=== PATIENT | female | born 1950 | race African-American/Black ===

== ENCOUNTER 2016-07-18 05:10 | Inpatient (IN) | payer MEDICARE, OTHER ==
[2016-07-05 11:35] LABS: BASOPHILS 0.4 %; BASOPHILS ABSOLUTE 0.02 10/3/uL (0.0-0.16); EOSINOPHILS 3.6 %; HEMATOCRIT 34.4 % (36.0-48.0); HEMOGLOBIN 11.1 g/dL (12.0-16.0); IMMATURE GRANULOCYTES 0.2 %; IMMATURE GRANULOCYTES ABSOLUTE 0.01 10/3/uL (0.0-0.11); LYMPHOCYTES 35.9 %; LYMPHOCYTES ABSOLUTE 1.98 10/3/uL (0.67-4.30); MANUAL DIFF NO %; MEAN CORPUS HGB CONC 32.3 g/dL (32.0-36.0); MEAN CORPUSCULAR HEMOGLOB 28.3 pg (26.0-34.0); MEAN CORPUSCULAR VOLUME 87.8 fL (80-100); MEAN PLATELET VOLUME 8.9 fL (9.2-13.0); MONOCYTES 7.1 %; MONOCYTES ABSOLUTE 0.39 10/3/uL (0.21-1.20); NEUTROPHILS 52.8 %; NEUTROPHILS ABSOLUTE 2.92 10/3/uL (2.02-8.40); PLATELET COUNT 256 10/3/uL (150-400); RBC DISTRIBUTION WIDTH 13.3 % (12.0-16.0); RED CELL COUNT 3.92 10/6/uL (4.0-5.6); WHITE BLOOD CELLS 5.5 10/3/uL (4.5-10.5)
[2016-07-05 11:38] LABS: PROTIME (NOT ORD) 13.5 SEC (12.0-14.5)
[2016-07-05 11:44] LABS: A/G RATIO 0.7 (0.7-1.9); ALBUMIN 3.3 G/DL (3.5-5.0); ALKALINE PHOSPHATASE 92 U/L (45-117); BUN (BLOOD UREA NITROGEN) 21 MG/DL (6-23); CALCIUM, SERUM 9.5 MG/DL (8.5-10.4); CHLORIDE, SERUM 108 MMOL/L (96-112); CO2 (CARBON DIOXIDE) 29 MMOL/L (24-34); CREATININE 1.18 MG/DL (0.55-1.02); GFR AFRICAN AMERICAN 56 ML/MIN (>=60); GFR NON AFRICAN AMERICAN 48 ML/MIN (>=60); GLOBULIN 4.8 G/DL (2.5-4.1); GLUCOSE, SERUM 76 MG/DL (60-99); POTASSIUM, SERUM 3.5 MMOL/L (3.5-5.3); SGOT(AST) 20 U/L (5-40); SGPT(ALT) 14 U/L (5-65); SODIUM, SERUM 143 MMOL/L (135-148); TOTAL BILIRUBIN 0.4 MG/DL (0-1.2); TOTAL PROTEIN 8.1 G/DL (6.0-8.5)
[2016-07-05 14:18] LABS: ASCORBIC ACID (UR NOT ORDER) NEG (NEG); BILIRUBIN, URINE NEGATIVE (NEG); KETONE, URINE NEGATIVE (NEG); LEUKOCYTE ESTERASE(NOT OR LARGE (NEG); WBC (NOT ORDERED) (RFLEX) 6 (0-5)
--- NOTE | ~2016-07-18 | OP ---
Record Of Operation [facility] [address] [place]. [address] NAME: BRETT FAJARDO : 50 STATUS : ADM IN PAT#: [id number] AGE: 66 ADM/REG DATE : 07/18/16 MR#: [id number] REPORT SERV DATE: 07/18/16 DICTATED BY: GARY KAUR DATE: 07/18/16 REPORT STATUS : Draft TRANSCRIBED BY: MODL DATE: 07/18/16 DATE OF PROCEDURE: 07/18/2016 PREOPERATIVE DIAGNOSIS: Severe bilateral knee degenerative joint disease. POSTOPERATIVE DIAGNOSIS: Severe bilateral knee degenerative joint disease. OPERATION: Bilateral posterior stabilized total knee replacement, cemented. SIDE: Right and left. SIZE: See chart. ANESTHESIA: See chart. ESTIMATED BLOOD LOSS: About 10 mL, each knee. TOURNIQUET TIME: Approximately 1 hour and 10 minutes. COMPLICATIONS: None. SPECIMENS: Articular surfaces. PROCEDURE: The patient was appropriately identified and marked. The operative side agreed with the consent form and it was checked by all members of the surgical team. The patient was taken to the operating room and anesthesia was induced per the anesthesiologist. The patient was carefully transferred to the operating table without incident. The patient received appropriate prophylactic antibiotics and a Palmer catheter was placed in the standard sterile technique. The patient was then carefully positioned, padded, prepped and draped in the normal sterile fashion. The operative leg had been appropriately identified and checked by all members of the operating team against the consent form and found to be the correct limb. The patient's lower extremity was then exsanguinated with an Amandeep wrap and a tourniquet was inflated to 350 mm/Hg. Sharp dissection was carried out through a straight midline longitudinal incision and electrocautery through the fat. Sharp quad splitting approach was carried out between about the medial 10 percent of the tendon and the lateral 90 percent of the tendon and down around the medial aspect of the patella and then 1 cm medial to the tibial tubercle. The patella was carefully everted and the posterior fat pad was excised and gentle MCL elevation was carried out off the proximal medial tibia subperiosteally. IM guide was placed in the distal femur after using the appropriate drill. The distal femoral cutting guide was held with 2 pins and the distal cut made. Meniscal fragments and the ACL and the PCL were excised with electrocautery, carefully staying anterior to the posterior fat pad. The proximal tibial alignment guide was set appropriately and the proximal tibial cut made. Spacer block verified full extension with excellent mediolateral balance. Sizing guide was used to place 2 drill holes in the distal femur and the four-in-one cutting block was then placed, impacted and checked Record Of Operation [facility] [address] [place]. [address] NAME: BRETT FAJARDO : 50 STATUS : ADM IN PAT#: [id number] AGE: 66 ADM/REG DATE : 07/18/16 MR#: [id number] REPORT SERV DATE: 07/18/16 DICTATED BY: GARY KAUR DATE: 07/18/16 REPORT STATUS : Draft TRANSCRIBED BY: DANICA DATE: 07/18/16 to be sure it would not notch with an stephanie wing and it was held with 2 pins. The anterior cut, posterior cut, anterior chamfer and posterior chamfer cuts were made. The pins were removed and the block was removed. A posterior release was carried out with a curved 3/4 inch osteotome staying right on the bone posteriorly. The box-cut guide was then placed, impacted and held with 2 pins and a reciprocating saw was used to cut out the box. With the trial components in place, there was excellent medial/lateral balance. The patella was then measured with a caliper, cut first with an oscillating saw and then reamed with a patella reamer. With the trial patella in place, there was excellent patellar tracking. Rotation was marked on the tibia and the tibia prepared with a drill and stamp chisel. All surfaces were then copiously irrigated with pulsatile lavage, carefully dried and then vacuum-mixed cement was pressurized with a cement gun in a doughy phase. The tibial component was placed, impacted and excess cement was removed. The cement was then pressurized in the femur and placed on the posterior runners of the femoral component, which was placed, impacted and excess cement removed and the knee was brought out into extension on a trial spacer. The cement was then pressurized in the patella. Patellar component was then placed, clamped and excess cement was removed. Once all cement was hardened, the knee was taken through range of motion. Further extruded cement was removed with a small osteotome. Then based on the trial inserts, we decided on the actual insert, which was placed in the standard fashion and held with a locking mechanism. The knee was then copiously irrigated and then closed in a layered fashion over a medium Hemovac drain superolaterally with interrupted #1 in the deep fascia, 2-0 subcutaneous and mike in the skin. The wounds were dressed sterilely and the tourniquet was deflated. The patient was then awakened and taken to the postanesthesia care unit without incident. All counts were correct at the end of the case. WTB/MODL Alissa Kaur M.D. / [id number] CC: Emmanuel Flores M.D.
--- NOTE | ~2016-07-18 | DS ---
Discharge Summary [facility] [address] [place]. [address] NAME: BRETT FAJARDO : 50 STATUS : DIS IN PAT#: [id number] AGE: 66 ADM/REG DATE : 07/18/16 MR#: [id number] REPORT SERV DATE: 07/30/16 DICTATED BY: GARY KAUR DATE: 07/30/16 REPORT STATUS : Draft TRANSCRIBED BY: DANICA DATE: 07/30/16 Data Collection from hospitalization DISCHARGE DIAGNOSES: 1. Severe bilateral knee degenerative joint disease. 2. Hypertension. CONSULTATIONS: None. PROCEDURES PERFORMED: Bilateral posterior stabilized total knee replacement, cemented, 07/18/2016. PATHOLOGY: Bone and soft tissue, right and left knee arthroplasty - degenerative changes, fatty bone marrow, papillary synovial hyperplasia. MEDICATIONS: [place] 7.5/325 one to two tablets every four hours as needed, Synthroid 125 mcg daily, Maxzide one tablet daily, and Coumadin one tablet every evening. CONDITION AT DISCHARGE: Stable. DISPOSITION: The patient was discharged home to be followed by home health care on a regular diet with activities as instructed. She would follow up with Rashaad Harp on 08/01/2016. She would follow up with on 09/02/2016. HOSPITAL COURSE: This is a 66-year-old female who has had bilateral knee pain. X-rays had shown severe bilateral knee degenerative joint disease. Treatment options were discussed and it was elected to proceed with surgical intervention. She was admitted to the hospital at this time for further evaluation and treatment. Upon admission, she was taken to the operating room where she underwent the above-mentioned procedure. She tolerated this well, and there were no complications. On postop day #1, she was transfused. KENZIE/SCDs were in place. Triamterene-hydrochlorothiazide were held. She did have some hypotension. Synthroid was continued. On postop day #2, she was up sitting in a bedside chair. She was in no acute distress. She said she felt much better. She was evaluated by Occupational and Physical Therapy. Over the next couple of days, she continued to progress. Her hypotension was improving. Discharge planning was performed. On 07/23/2016, she continued to do well. She was nervous about doing stairs. Discharge instructions were given. Due to her improved and stable condition, she was discharged home to be followed by home health care with the above-stated instructions. Information collected by: Jacinda Marshall I submit the above information as my discharge summary. SOL/DANICA Alissa Kaur M.D. Discharge Summary [address] [address] NAME: BRETT FAJARDO : 50 STATUS : DIS IN PAT#: [id number] AGE: 66 ADM/REG DATE : 07/18/16 MR#: [id number] REPORT SERV DATE: 07/30/16 DICTATED BY: GARY KAUR DATE: 07/30/16 REPORT STATUS : Draft TRANSCRIBED BY: DANICA DATE: 07/30/16 / [id number] CC: Emmanuel Flores M.D.
[~2016-07-18 05:10] MED LIST: AMB10 PO; DYAZIDE1 CAP PO; MAX25 PO; MOBIC15 MG PO; SYN125 PO; SYN88 PO; TAGAMET 200 MG200 MG PO; TOPAMAX50 MG PO
[2016-07-19 04:19] LABS: INTERNATIONAL NORMAL RATI 1.2 UNITS (-); PROTIME (NOT ORD) 15.3 SEC (12.0-14.5)
[2016-07-19 04:21] LABS: HEMATOCRIT 23.2 % (36.0-48.0); HEMOGLOBIN 7.2 g/dL (12.0-16.0)
[2016-07-19 04:30] LABS: BUN (BLOOD UREA NITROGEN) 19 MG/DL (6-23); CHLORIDE, SERUM 108 MMOL/L (96-112); CO2 (CARBON DIOXIDE) 30 MMOL/L (24-34); CREATININE 1.05 MG/DL (0.55-1.02); GFR AFRICAN AMERICAN 64 ML/MIN (>=60); GFR NON AFRICAN AMERICAN 55 ML/MIN (>=60); POTASSIUM, SERUM 4.1 MMOL/L (3.5-5.3); SODIUM, SERUM 142 MMOL/L (135-148)
[2016-07-19 04:32] LABS: CALCIUM, SERUM 8.2 MG/DL (8.5-10.4); GLUCOSE, SERUM 115 MG/DL (60-99)
[2016-07-20 04:49] LABS: HEMATOCRIT 26.7 % (36.0-48.0); HEMOGLOBIN 8.7 g/dL (12.0-16.0)
[2016-07-20 04:55] LABS: INTERNATIONAL NORMAL RATI 1.9 UNITS (-)
[2016-07-20 04:56] LABS: PROTIME (NOT ORD) 21.2 SEC (12.0-14.5)
[2016-07-20 05:07] LABS: BUN (BLOOD UREA NITROGEN) 16 MG/DL (6-23); CALCIUM, SERUM 8.7 MG/DL (8.5-10.4); CHLORIDE, SERUM 109 MMOL/L (96-112); CO2 (CARBON DIOXIDE) 28 MMOL/L (24-34); CREATININE 0.83 MG/DL (0.55-1.02); GFR AFRICAN AMERICAN 85 ML/MIN (>=60); GFR NON AFRICAN AMERICAN 73 ML/MIN (>=60); GLUCOSE, SERUM 101 MG/DL (60-99); POTASSIUM, SERUM 3.8 MMOL/L (3.5-5.3); SODIUM, SERUM 143 MMOL/L (135-148)
[2016-07-21 04:24] LABS: HEMATOCRIT 26.3 % (36.0-48.0); HEMOGLOBIN 8.3 g/dL (12.0-16.0)
[2016-07-21 04:31] LABS: INTERNATIONAL NORMAL RATI 1.9 UNITS (-); PROTIME (NOT ORD) 21.8 SEC (12.0-14.5)
[2016-07-22 04:15] LABS: HEMATOCRIT 25.1 % (36.0-48.0); HEMOGLOBIN 8.1 g/dL (12.0-16.0)
[2016-07-22 04:20] LABS: INTERNATIONAL NORMAL RATI 1.9 UNITS (-); PROTIME (NOT ORD) 21.9 SEC (12.0-14.5)
[2016-07-22 04:29] LABS: CALCIUM, SERUM 8.4 MG/DL (8.5-10.4); CHLORIDE, SERUM 107 MMOL/L (96-112); CO2 (CARBON DIOXIDE) 28 MMOL/L (24-34); GFR AFRICAN AMERICAN 89 ML/MIN (>=60); GFR NON AFRICAN AMERICAN 77 ML/MIN (>=60); GLUCOSE, SERUM 103 MG/DL (60-99); POTASSIUM, SERUM 3.5 MMOL/L (3.5-5.3); SODIUM, SERUM 142 MMOL/L (135-148)
[2016-07-22 04:30] LABS: BUN (BLOOD UREA NITROGEN) 12 MG/DL (6-23)
[2016-07-23 04:17] LABS: BASOPHILS 0.1 %; BASOPHILS ABSOLUTE 0.01 10/3/uL (0.0-0.16); EOSINOPHILS ABSOLUTE 0.16 10/3/uL (0.0-0.53); HEMATOCRIT 25.8 % (36.0-48.0); HEMOGLOBIN 8.3 g/dL (12.0-16.0); IMMATURE GRANULOCYTES 0.1 %; IMMATURE GRANULOCYTES ABSOLUTE 0.01 10/3/uL (0.0-0.11); LYMPHOCYTES 28.1 %; LYMPHOCYTES ABSOLUTE 2.26 10/3/uL (0.67-4.30); MANUAL DIFF NO %; MEAN CORPUS HGB CONC 32.2 g/dL (32.0-36.0); MEAN CORPUSCULAR HEMOGLOB 28.2 pg (26.0-34.0); MEAN CORPUSCULAR VOLUME 87.8 fL (80-100); MEAN PLATELET VOLUME 8.2 fL (9.2-13.0); MONOCYTES 9.5 %; MONOCYTES ABSOLUTE 0.76 10/3/uL (0.21-1.20); NEUTROPHILS 60.2 %; NEUTROPHILS ABSOLUTE 4.84 10/3/uL (2.02-8.40); PLATELET COUNT 202 10/3/uL (150-400); RBC DISTRIBUTION WIDTH 13.1 % (12.0-16.0); RED CELL COUNT 2.94 10/6/uL (4.0-5.6)
[2016-07-23 04:23] LABS: INTERNATIONAL NORMAL RATI 2.1 UNITS (-); PROTIME (NOT ORD) 23.6 SEC (12.0-14.5)
[2016-07-23 04:29] LABS: BUN (BLOOD UREA NITROGEN) 13 MG/DL (6-23); CALCIUM, SERUM 8.5 MG/DL (8.5-10.4); CHLORIDE, SERUM 107 MMOL/L (96-112); CO2 (CARBON DIOXIDE) 29 MMOL/L (24-34); CREATININE 0.86 MG/DL (0.55-1.02); GFR AFRICAN AMERICAN 82 ML/MIN (>=60); GFR NON AFRICAN AMERICAN 70 ML/MIN (>=60); GLUCOSE, SERUM 102 MG/DL (60-99); POTASSIUM, SERUM 3.8 MMOL/L (3.5-5.3); SODIUM, SERUM 142 MMOL/L (135-148)
[2016-07-23] MEDS ORDERED: NORCO1 TA2 PO (11:13)
[2016-07-23] MEDS ORDERED: C25 PO (11:14)
== END 2016-07-23 15:54 | disposition home health service (06) | DRG 462 ==
LOC: SDC/OF 05:10 → PACU 09:33 → 3SO 10:47
PROVIDERS: Nurse Practitioner; Nurse Practitioner Acute Care; Specialist
PROC: 0SRC0J9 Replacement of Right Knee Joint with Synthetic Substitute, Cemented, Open Approach (ICD-10-PCS; 2016-07-18)
PROC: 0SRD0J9 Replacement of Left Knee Joint with Synthetic Substitute, Cemented, Open Approach (ICD-10-PCS; principal; 2016-07-18 06:45)
PROC: 30233N1 Transfusion of Nonautologous Red Blood Cells into Peripheral Vein, Percutaneous Approach (ICD-10-PCS; 2016-07-19)
DX: M17.0 Bilateral primary osteoarthritis of knee (principal); D62 Acute posthemorrhagic anemia; E03.9 Hypothyroidism, unspecified
CPT/HCPCS: 36415; 71020; 80048; 80053; 81001; 85014; 85018; 85025; 85610; 86850; 86900; 86901; 86920; 87086; 87641; 88305; 88311; 93005; 97110-GP; 97116-GP; 97161-GP; 97165-GO; 97530-GP; A9270-GY; C1776; J0690; J1170; J1580; J1885; J2250; J2270; J2405; J2710; J2795; J3010; P9016